=== PATIENT | female | born 1990 | race African-American/Black ===

== ENCOUNTER 2016-08-05 21:32 | Emergency (ER) | payer OTHER ==
[~2016-08-05 21:32] MED LIST: ACET50TA PO; DOCU10CA PO; HYDR-3713 PO; IBUP80TA PO; PREN200C2 PO
[2016-08-05] MEDS ORDERED: KETOROLAC TROMETHAMINE 10 MG TAB As Ordered ONE (23:44)
[2016-08-05] MEDS ORDERED: ONDANSETRON 4 MG ORAL DISINTEGRATING TAB (S0181) As Ordered ONE (23:44)
--- NOTE | 2016-08-05 23:51 | EDDOCDS ---
Nurse's Notes [facility] Name: Sandra Cho Age: 26 yrs Sex: Female : 1990 Arrival Date: 08/05/2016 Time: 21:32 Bed Triage 1 Private MD: JANNY Redding Diagnosis: Disease of biliary tract, unspecified-colic Presentation: 08/05 21:45 Presenting complaint: Patient states: abdominal pain/vomiting since 7.30 PM. Risk rs3 factors: the patient reports no vaginal bleeding. Adult Sepsis Screening: The patient does not have new or worsening altered mentation. Patient's respiratory rate is less than 22. Systolic blood pressure is greater than 100. Patient has a qSOFA score of 0- Negative Sepsis Screen. Suicide/Homicide risk assessment- the patient denies having any suicidal and/or homicidal ideations and does not present with any other emotional, behavioral or mental health complaints. Status: The patient is a dependent. Transition of care: patient was not received from another setting of care. 21:45 Acuity: CELESTINO Level 3 rs3 21:45 Method Of Arrival: Walkin/Carried/Asstd rs3 Triage Assessment: 21:47 General: Appears in no apparent distress. Pain: Location: abdomen. Pt Declines HIV rs3 testing. GI: Reports upper abd pain. 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 hydrocodone-acetaminophen 5-325 mg Oral tab 1 tab - PMHx: Cholecystitis; - PSHx: none; - Social history: Smoking status: Patient states was never smoker of tobacco. No barriers to communication noted, The patient speaks fluent Barbadian. - Family history: Not pertinent. - : The pt / caregiver states he / she is not on anticoagulants. Home medication list is obtained from the patient. - Exposure Risk Screening:: None identified. Screenin:49 Screening information is obtained from the patient. Fall risk: No risks identified. slm Assistance ADL's: requires no assistance with activities of daily living. Abuse/DV Screen: The patient / caregiver reports he/she is: not in a situation that causes fear, pain or injury. Nutritional screening: No deficits noted. Advance Directives: Currently, there is no health care proxy. There is no active DNR order. There is no living will. There is no Power of Cobol Application Developer. Advance directive information has not previously been placed in an [facility] medical record. home support is adequate. Assessment: 23:47 General: Appears in no apparent distress, comfortable, Behavior is cooperative. Pain: slm Location: abdomen. Derm: Skin is pink, warm & dry. 23:49 GI: Abdomen is non- distended. [facility] Vital Signs: 21:34 BP 112 / 64 RA Sitting (auto/lg); Pulse 90; Resp 18; Temp 97.8(O); Pulse Ox 100% on rs6 R/A; Weight 100.24 kg (R); Height 5 ft. 11 in. (180.34 cm) (R); Pain 9/10; 21:34 Body Mass Index 30.82 (100.24 kg, 180.34 cm) rs6 Vitals: 21:34 Log In Time: August 05, 2016 at 21:34. rs6 ED Course: 21:33 Patient visited by Payal Arnold, TERRAZZO LABORER. rs6 21:33 Vahid [facility] is Private Physician. rs6 21:33 Patient moved to Waiting rs6 21:35 Patient visited by Payal Arnold, TERRAZZO LABORER. rs6 21:35 Patient moved to Pre RCE rs6 21:46 Triage Initiated rs3 23:19 Patient moved to Triage 1 sl 23:34 Godwin Mendiola PA-C is PSYCHIATRICP. cc10 23:34 Ck Knight DO is Attending Physician. cc10 23:36 Patient visited by Godwin Mendiola PA-C. cc10 23:36 Patient visited by Godwin Mendiola PA-C. cc10 23:41 Arturo Grey is Referral Physician. cc10 23:49 The patient / caregiver is instructed regarding the plan of care and ED course. Patient slm has correct armband on for positive identification. Bed in low position. Call light in reach. 23:49 No IV's were initiated during this patient's visit. No procedures done that require slm assistance. Administered Medications: 23:46 Drug: Ondansetron ODT 4 mg [ondansetron 4 mg disintegrating tablet (1 tabs)] Route: PO; slm 23:46 Drug: ketorolac 10 mg [ketorolac 10 mg tablet (1 tabs)] Route: PO; slm Order Results: There are currently no results for this order. Outcome: 23:41 Discharge ordered by Provider. cc10 23:48 Discharge Assessment: Patient awake, alert and oriented x 3. No cognitive and/or slm functional deficits noted. Patient verbalized understanding of disposition instructions. patient administered narcotics - no. The following High Risk Discharge criteria are identified: None. Discharged to home ambulatory, with significant other. Condition: good. Discharge instructions given to patient, Instructed on discharge instructions, follow up and referral plans. medication usage, Demonstrated understanding of instructions, medications, Pt was receptive of discharge instructions/ teaching. Prescriptions given X 2. Property :Personal belongings accompany Pt. 23:50 No special radiology studies were completed. slm 23:50 Patient left the ED. slm Signatures: Christianne Edwards,RN RN rs3 Wendy Alegre,COPIER REPAIR TECHNICIAN COPIER REPAIR TECHNICIAN slm Godwin Mendiola, PADes PA-Kristian cc10 Payal Arnold, ERNESTO TERRAZZO LABORER rs6 MTDD
--- NOTE | 2016-08-05 23:51 | EDDOCDS ---
Physician Documentation [facility] Name: Sandra Cho Age: 26 yrs Sex: Female : 1990 Arrival Date: 08/05/2016 Time: 21:32 Bed Triage 1 Private MD: JANNY Redding Disposition: 08/05/16 23:41 Discharged to Home/Self Care. Impression: Disease of biliary tract, unspecified - colic. - Condition is Stable. - Discharge Instructions: Biliary Colic. - Prescriptions for ZOFRAN ODT 4 mg - dissolve 1 tablet by ORAL route 4 times per day As needed do not chew, do not swallow whole; 10 tablet. ketorolac 10 mg Oral Tablet - take 1 tablet by ORAL route 3 times per day As needed MDD- 30mg. Up to 5 days total use.; 15 tablet. - Medication Reconciliation form. - Follow up: Arturo Grey; When: Call to arrange an appointment; Reason: Wound/Symptom Recheck, Recheck today's complaints, Worsening of conditions, Continuance of care. - Problem is an acute exacerbation. - Symptoms have improved. Historical: - Allergies: PENICILLINS (Rash); - Home Meds: 1. hydrocodone-acetaminophen 5-325 mg Oral tab 1 tab - PMHx: Cholecystitis; - PSHx: none; - Social history: Smoking status: Patient states was never smoker of tobacco. No barriers to communication noted, The patient speaks fluent Serbian. - Family history: Not pertinent. - : The pt / caregiver states he / she is not on anticoagulants. Home medication list is obtained from the patient. - Exposure Risk Screening:: None identified. 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 11 in. (180.34 cm) (R); Pain 9/10; 21:34 Body Mass Index 30.82 (100.24 kg, 180.34 cm) rs6 MDM: 23:41 Ondansetron ODT Oral Disintegrating Tablet 4 mg PO once ordered. cc10 23:41 ketorolac 10 mg PO once ordered. cc10 23:46 Financial registration complete. hs2 Administered Medications: 23:46 Drug: Ondansetron ODT 4 mg [ondansetron 4 mg disintegrating tablet (1 tabs)] Route: PO; slm 23:46 Drug: ketorolac 10 mg [ketorolac 10 mg tablet (1 tabs)] Route: PO; slm Signatures: Dispatcher [employer] EDMS Christianne Edwards RN RN rs3 Wendy Alegre,CUSTOM SHOE DESIGNER AND MAKER CUSTOM SHOE DESIGNER AND MAKER slm Godwin Mendiola, PA-C PA-C cc10 Stacie Barnard, Reg Reg hs2 The chart was reviewed and I authenticate all verbal orders and agree with the evaluation and treatment provided.Corrections: (The following items were deleted from the chart) 21:50 21:44 Wrist, complete+XR ordered. EDMS EDMS MTDD
--- NOTE | 2016-08-08 00:51 | EDDOCDS ---
Nurse's Notes [facility] Name: Sandra Cho Age: 26 yrs Sex: Female : 1990 Arrival Date: 08/05/2016 Time: 21:32 Bed Triage 1 Private MD: JANNY Redding Diagnosis: Disease of biliary tract, unspecified-colic Presentation: 08/05 21:45 Presenting complaint: Patient states: abdominal pain/vomiting since 7.30 PM. Risk rs3 factors: the patient reports no vaginal bleeding. Adult Sepsis Screening: The patient does not have new or worsening altered mentation. Patient's respiratory rate is less than 22. Systolic blood pressure is greater than 100. Patient has a qSOFA score of 0- Negative Sepsis Screen. Suicide/Homicide risk assessment- the patient denies having any suicidal and/or homicidal ideations and does not present with any other emotional, behavioral or mental health complaints. Status: The patient is a dependent. Transition of care: patient was not received from another setting of care. 21:45 Acuity: CELESTINO Level 3 rs3 21:45 Method Of Arrival: Walkin/Carried/Asstd rs3 Triage Assessment: 21:47 General: Appears in no apparent distress. Pain: Location: abdomen. Pt Declines HIV rs3 testing. GI: Reports upper abd pain. 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 hydrocodone-acetaminophen 5-325 mg Oral tab 1 tab - PMHx: Cholecystitis; - PSHx: none; - Social history: Smoking status: Patient states was never smoker of tobacco. No barriers to communication noted, The patient speaks fluent Tanzanian. - Family history: Not pertinent. - : The pt / caregiver states he / she is not on anticoagulants. Home medication list is obtained from the patient. - Exposure Risk Screening:: None identified. Screenin:49 Screening information is obtained from the patient. Fall risk: No risks identified. slm Assistance ADL's: requires no assistance with activities of daily living. Abuse/DV Screen: The patient / caregiver reports he/she is: not in a situation that causes fear, pain or injury. Nutritional screening: No deficits noted. Advance Directives: Currently, there is no health care proxy. There is no active DNR order. There is no living will. There is no Power of Menhaden Vessel Pilot. Advance directive information has not previously been placed in an [facility] medical record. home support is adequate. Assessment: 23:47 General: Appears in no apparent distress, comfortable, Behavior is cooperative. Pain: slm Location: abdomen. Derm: Skin is pink, warm & dry. 23:49 GI: Abdomen is non- distended. [facility] Vital Signs: 21:34 BP 112 / 64 RA Sitting (auto/lg); Pulse 90; Resp 18; Temp 97.8(O); Pulse Ox 100% on rs6 R/A; Weight 100.24 kg (R); Height 5 ft. 11 in. (180.34 cm) (R); Pain 9/10; 21:34 Body Mass Index 30.82 (100.24 kg, 180.34 cm) rs6 Vitals: 21:34 Log In Time: August 05, 2016 at 21:34. rs6 ED Course: 21:33 Patient visited by Payal Arnold, ERNESTO. rs6 21:33 Vahid [facility] is Private Physician. rs6 21:33 Patient moved to Waiting rs6 21:35 Patient visited by Payal Arnold, DERRICK BOAT LEVER OPERATOR. rs6 21:35 Patient moved to Pre RCE rs6 21:46 Triage Initiated rs3 23:19 Patient moved to Triage 1 sl 23:34 Godwin Mendiola PA-C is PHCP. cc10 23:34 Ck Knight DO is Attending Physician. cc10 23:36 Patient visited by Godwin Mendiola PA-C. cc10 23:36 Patient visited by Godwin Mendiola PA-C. cc10 23:41 Arturo Grey is Referral Physician. cc10 23:49 The patient / caregiver is instructed regarding the plan of care and ED course. Patient slm has correct armband on for positive identification. Bed in low position. Call light in reach. 23:49 No IV's were initiated during this patient's visit. No procedures done that require slm assistance. 08/06 00:28 [facility] Payment Agreement was scanned into [employer] and attached to record. hs2 00:38 Patient name changed from Sandra\S\\S\Yaquelin Cho\S\ to Sandra\S\ \S\Yaquelin Cho. EDMS 09:14 T-Sheet-- Draft Copy was scanned into [employer] and attached to record. gb Administered Medications: 08/05 23:46 Drug: Ondansetron ODT 4 mg [ondansetron 4 mg disintegrating tablet (1 tabs)] Route: PO; slm 23:46 Drug: ketorolac 10 mg [ketorolac 10 mg tablet (1 tabs)] Route: PO; slm Order Results: There are currently no results for this order. Outcome: 23:41 Discharge ordered by Provider. cc10 23:48 Discharge Assessment: Patient awake, alert and oriented x 3. No cognitive and/or slm functional deficits noted. Patient verbalized understanding of disposition instructions. patient administered narcotics - no. The following High Risk Discharge criteria are identified: None. Discharged to home ambulatory, with significant other. Condition: good. Discharge instructions given to patient, Instructed on discharge instructions, follow up and referral plans. medication usage, Demonstrated understanding of instructions, medications, Pt was receptive of discharge instructions/ teaching. Prescriptions given X 2. Property :Personal belongings accompany Pt. 23:50 No special radiology studies were completed. slm 23:50 Patient left the ED. [facility] Signatures: Dispatcher [facility] EDMS Vicki Aguila, Reg Reg gb Christianne Edwards RN RN rs3 Wendy Alegre,BICYCLE REPAIRER BICYCLE REPAIRER slm Godwin Mendiola, PADes PADes cc10 Payal Arnold, DERRICK BOAT LEVER OPERATOR DERRICK BOAT LEVER OPERATOR rs6 Stacie Barnard, Reg Reg hs2 Chart Complete MTDD
--- NOTE | 2016-08-08 00:51 | EDDOCDS ---
Physician Documentation [facility] Name: Sandra Cho Age: 26 yrs Sex: Female : 1990 Arrival Date: 08/05/2016 Time: 21:32 Bed Triage 1 Private MD: JANNY Redding Disposition: 08/05/16 23:41 Discharged to Home/Self Care. Impression: Disease of biliary tract, unspecified - colic. - Condition is Stable. - Discharge Instructions: Biliary Colic. - Prescriptions for ZOFRAN ODT 4 mg - dissolve 1 tablet by ORAL route 4 times per day As needed do not chew, do not swallow whole; 10 tablet. ketorolac 10 mg Oral Tablet - take 1 tablet by ORAL route 3 times per day As needed MDD- 30mg. Up to 5 days total use.; 15 tablet. - Medication Reconciliation form. - Follow up: Arturo Grey; When: Call to arrange an appointment; Reason: Wound/Symptom Recheck, Recheck today's complaints, Worsening of conditions, Continuance of care. - Problem is an acute exacerbation. - Symptoms have improved. Historical: - Allergies: PENICILLINS (Rash); - Home Meds: 1. hydrocodone-acetaminophen 5-325 mg Oral tab 1 tab - PMHx: Cholecystitis; - PSHx: none; - Social history: Smoking status: Patient states was never smoker of tobacco. No barriers to communication noted, The patient speaks fluent Portuguese. - Family history: Not pertinent. - : The pt / caregiver states he / she is not on anticoagulants. Home medication list is obtained from the patient. - Exposure Risk Screening:: None identified. 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 11 in. (180.34 cm) (R); Pain 9/10; 21:34 Body Mass Index 30.82 (100.24 kg, 180.34 cm) rs6 MDM: 23:41 Ondansetron ODT Oral Disintegrating Tablet 4 mg PO once ordered. cc10 23:41 ketorolac 10 mg PO once ordered. cc10 23:46 Financial registration complete. hs2 08/06 00:28 [facility] Payment Agreement was scanned into [employer] and attached to record. hs2 09:14 T-Sheet-- Draft Copy was scanned into [employer] and attached to record. gb Administered Medications: 08/05 23:46 Drug: Ondansetron ODT 4 mg [ondansetron 4 mg disintegrating tablet (1 tabs)] Route: PO; slm 23:46 Drug: ketorolac 10 mg [ketorolac 10 mg tablet (1 tabs)] Route: PO; slm Signatures: Dispatcher [employer] EDMS Vicki Aguila, Reg Reg gb Christianne Edwards RN RN rs3 Wendy Alegre,URBAN FORESTER URBAN FORESTER slm Godwin Mendiola, PADes PA-C cc10 Stacie Barnard, Reg Reg hs2 The chart was reviewed and I authenticate all verbal orders and agree with the evaluation and treatment provided.Corrections: (The following items were deleted from the chart) 21:50 21:44 Wrist, complete+XR ordered. EDMS EDMS Attachments: 08/06 00:28 [facility] Payment Agreement hs2 09:14 T-Sheet-- Draft Copy gb Chart Complete MTDD
--- NOTE | 2016-08-08 00:52 | EDDOCDS ---
Physician Documentation [facility] Name: Sandra Cho Age: 26 yrs Sex: Female : 1990 Arrival Date: 08/05/2016 Time: 21:32 Bed Triage 1 Private MD: JANNY Redding Disposition: 08/05/16 23:41 Discharged to Home/Self Care. Impression: Disease of biliary tract, unspecified - colic. - Condition is Stable. - Discharge Instructions: Biliary Colic. - Prescriptions for ZOFRAN ODT 4 mg - dissolve 1 tablet by ORAL route 4 times per day As needed do not chew, do not swallow whole; 10 tablet. ketorolac 10 mg Oral Tablet - take 1 tablet by ORAL route 3 times per day As needed MDD- 30mg. Up to 5 days total use.; 15 tablet. - Medication Reconciliation form. - Follow up: Arturo Grey; When: Call to arrange an appointment; Reason: Wound/Symptom Recheck, Recheck today's complaints, Worsening of conditions, Continuance of care. - Problem is an acute exacerbation. - Symptoms have improved. Historical: - Allergies: PENICILLINS (Rash); - Home Meds: 1. hydrocodone-acetaminophen 5-325 mg Oral tab 1 tab - PMHx: Cholecystitis; - PSHx: none; - Social history: Smoking status: Patient states was never smoker of tobacco. No barriers to communication noted, The patient speaks fluent Maltese. - Family history: Not pertinent. - : The pt / caregiver states he / she is not on anticoagulants. Home medication list is obtained from the patient. - Exposure Risk Screening:: None identified. 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 11 in. (180.34 cm) (R); Pain 9/10; 21:34 Body Mass Index 30.82 (100.24 kg, 180.34 cm) rs6 MDM: 23:41 Ondansetron ODT Oral Disintegrating Tablet 4 mg PO once ordered. cc10 23:41 ketorolac 10 mg PO once ordered. cc10 23:46 Financial registration complete. hs2 08/06 00:28 [facility] Payment Agreement was scanned into [employer] and attached to record. hs2 09:14 T-Sheet-- Draft Copy was scanned into [employer] and attached to record. gb Administered Medications: 08/05 23:46 Drug: Ondansetron ODT 4 mg [ondansetron 4 mg disintegrating tablet (1 tabs)] Route: PO; slm 23:46 Drug: ketorolac 10 mg [ketorolac 10 mg tablet (1 tabs)] Route: PO; slm Signatures: Dispatcher [employer] EDMS Vicki Aguila, Reg Reg gb Christianne Edwards RN RN rs3 Wendy Alegre,LEASING SPECIALIST LEASING SPECIALIST slm Godwin Mendiola, PADes PA-C cc10 Stacie Barnard, Reg Reg hs2 The chart was reviewed and I authenticate all verbal orders and agree with the evaluation and treatment provided.Corrections: (The following items were deleted from the chart) 21:50 21:44 Wrist, complete+XR ordered. EDMS EDMS Attachments: 08/06 00:28 [facility] Payment Agreement hs2 09:14 T-Sheet-- Draft Copy gb Chart Complete MTDD
== END 2016-08-05 23:50 | disposition home or self-care (01) ==
LOC: M ED 21:32
DX: K80.50 Calculus of bile duct without cholangitis or cholecystitis without obstruction (principal); Z88.0 Allergy status to penicillin

== ENCOUNTER → 2016-08-10 | Day surgery (SDC) | payer OTHER ==
[~2016-08-10] VITALS: Ht 170.2 cm; Wt 100.2 kg
[~2016-08-10] MED LIST changes: +BUPIVACAINE HCL 0.25% 30 ML VIAL As Ordered ONE; +BUPIVACAINE HCL 0.25% 30 ML VIAL XX ONE; +D5W/0.2% SODIUM CHLORIDE 250 ML IV SCH; +DESFLURANE 240 ML INHALANT As Ordered ONE; +GLYCOPYRROLATE INJ 0.2 MG/ML 2 ML VIAL As Ordered ONE; +HYDROmorphone HCL 2 MG/ML 1ML VIAL (J1170) As Ordered ONE; +KETOROLAC 60 MG/2 ML VIAL (J1885) As Ordered ONE; +LR 1,000 ML IV SCH; +METOCLOPRAMIDE INJ 10MG/2ML VIAL (J2765) IV PRN; +MORPHINE 2 MG/ML 1ML SYRINGE IV PRN; +NEOSTIGMINE 1MG/ML 5 ML SYRINGE (J2710) As Ordered ONE; +NORCO, ANEXSIA 5/325MG TABLET (HYDROcodone/ACETAMINOPHEN) PO PRN; +ONDANSETRON 4MG/2ML VIAL (J2405) As Ordered ONE; +ONDANSETRON 4MG/2ML VIAL (J2405) IV PRN; +PERCOCET 5MG/325MG TAB PO PRN; +PROPOFOL 200 MG/20 ML VIAL As Ordered ONE; +PROPOFOL 500 MG/50 ML VIAL As Ordered ONE; +ROCURONIUM BROMIDE 50 MG/5 ML VIAL As Ordered ONE; +dexameTHASONE 4 MG/ML 1ML VIAL (J1100) As Ordered ONE; +fentaNYL 100 MCG/2 ML INJECTION (J3010) As Ordered ONE; +fentaNYL 100 MCG/2 ML INJECTION (J3010) IV PRN
[2016-08-10 06:49] LABS: CONTROL LINE UCG INT CTR LINE PRESENT
--- NOTE | 2016-08-10 12:51 | RO ---
DATE OF PROCEDURE: 08/10/2016 PREOPERATIVE DIAGNOSIS: Symptomatic cholelithiasis. POSTOPERATIVE DIAGNOSES: Symptomatic cholelithiasis. Umbilical hernia. PROCEDURES PERFORMED: 1. Laparoscopic cholecystectomy. 2. Repair of umbilical hernia. SURGEON: Dr. Arturo Grey ANESTHESIA: General. INDICATIONS FOR PROCEDURE: The patient is a 26-year-old woman with a history of multiple episodes of epigastric and right upper quadrant abdominal pain. Several of these have been severe enough to bring her to the emergency department. Ultrasound confirmed cholelithiasis. She is now for a laparoscopic cholecystectomy. A preoperative urine test was positive and a serum quantitative HCG was 17. The patient discussed this finding with anesthesia and a decision was made to proceed with the surgery today. OPERATIVE PROCEDURE: The patient was placed under general endotracheal anesthesia. The patient's abdomen was prepped and draped in a sterile fashion. Examination confirmed a small umbilical hernia, perhaps a centimeter and a half in diameter. I elected to use this for the first trocar site and to repair her hernia in the course of closure. Therefore, a short curved transverse supraumbilical incision was made. 0.25% Marcaine was infiltrated prior to each of the trocar insertions. The umbilical skin was elevated and the hernia was entered. Stay sutures were placed and a Arias cannula was inserted and the abdomen was insufflated with carbon dioxide gas. The laparoscope was placed. The patient was tilted to a reverse Trendelenburg position and rolled to the left. Two 5 mm trocars were placed in the right upper quadrant and a third 5 mm trocar was placed in the left upper quadrant. Graspers were inserted and the gallbladder was grasped and elevated. There was a broad band of omentum that was adherent up over the neck and body of the gallbladder. This was carefully dissected away using the cautery. The peritoneum was then opened at the neck of the gallbladder. Dissection proceeded through some fibrotic tissue around the neck of the gallbladder. The cystic duct was clearly identified. The artery was identified running up along the inferior aspect of the cystic duct. The artery was freed and then doubly clipped and divided. The cystic duct was then doubly clipped and divided. The gallbladder was then dissected free from the gallbladder bed using cautery dissection. The gallbladder was not perforated in the course of dissection. The gallbladder was placed in an Endopouch. The right upper quadrant was irrigated and inspected. There was no evidence of bleeding or bile leak. The patient was returned to a flat position. The trocars were all removed after deflating the abdomen. The gallbladder was recovered through the Arias site and a number of small stones were identified within the gallbladder. This was sent for permanent pathology. The umbilical skin was freed from the fascial edges of the umbilical hernia defect. This was approximately one and a half centimeters in diameter. The fascial defect was approximated with three simple sutures of #2-0 Ethibond. The umbilical skin was tacked down to the fascia with a #2-0 Vicryl. The skin incisions were then all closed with buried #5-0 Vicryl and Steri-Strips. Light dressings were applied. The patient tolerated the procedure well without apparent complication. She was awakened in the operating room, extubated and moved to the recovery room in stable condition. [facility]
[2016-08-10 14:05] VITALS: BP 118/70
== END ==
LOC: M SDC 06:05
PROVIDERS: ATTEND Surgery
DX: K80.10 Calculus of gallbladder with chronic cholecystitis without obstruction (principal); K42.9 Umbilical hernia without obstruction or gangrene; Z88.0 Allergy status to penicillin
CPT/HCPCS: 36415; 47562; 49652; 84702; 84703; 88304; J1100; J1170; J1885; J2405; J2710; J3010